=== PATIENT | male | born 1960 | race Caucasian/White ===

== ENCOUNTER → 2023-03-23 | Outpatient (CLI) | payer BC ==
[~2023-03-23] MED LIST: ALDACTONE50 MG PO; ASPIRIN E.C. 8181 MG PO; CEPHALEXIN500 M1 PO; COUMADIN 5MG5 MG/TAB PO; LASIX 20MG TABL20 MG PO; LIPITOR 10MG10 MG PO; LOPRESSOR 225 MG/TAB PO; LOPRESSOR 550 MG/TAB PO; LOVENOX 100100 MG/ML SQ; LOVENOX 6060 MG/0.6 SQ; NITROSTAT0.4 MG/TAB SL; PLAVIX 75MG TAB75 MG PO; PRINIVIL5 MG PO; ZESTRIL 5MG5 MG PO
== END ==
LOC: COL.RAD 10:35
DX: R22.1 Localized swelling, mass and lump, neck (principal)